=== PATIENT | male | born 1970 | race Caucasian/White ===

== ENCOUNTER 2016-07-19 15:43 | Emergency (ER) | payer OTHER ==
[~2016-07-19] VITALS: Ht 182.9 cm; Wt 101.6 kg
[2016-07-19 15:43] VITALS: BP_SYST 207
--- NOTE | 2016-07-19 15:43 | NUR ---
BROUGHT IN BY [employer] AND [facility]ACED IN [facility], REPORT GIVEN TO JOHNNIE
[2016-07-19] MEDS ORDERED: cloNIDine HCL 0.1 MG TABLET PO ONE (16:15)
--- NOTE | 2016-07-19 16:35 | NUR ---
PT TO ER AAOx4 BROUGHT IN BY [employer] FOR HYPERTENSION OKAY TO BOOK, BP 210/91 at this time MD Notified Orders received, denies pain, denies CP, denies SOB Law enforcement at bedside
[2016-07-19 17:30] VITALS: BP_SYST 121
--- NOTE | 2016-07-19 17:30 | NUR ---
Patient given written and verbal discharge instructions and verbalizes understanding. ER MD DR. VASQUEZ discussed with patient AND [employer] the results and treatment provided. Patient in stable condition. ID arm band removed. NO Rx given. Patient educated on pain management and to follow up with PMD. Pain Scale 0/10 Opportunity for questions provided and answered.
== END 2016-07-19 17:30 ==
LOC: SED 15:43
DX: Z02.89 Encounter for other administrative examinations (principal); I10 Essential (primary) hypertension
CPT/HCPCS: 99283

== ENCOUNTER 2017-02-17 23:51 | Emergency (ER) | payer OTHER ==
[~2017-02-17] VITALS: Ht 180.3 cm; Wt 102.1 kg
[2017-02-17 23:51] VITALS: BP_SYST 152
[2017-02-18] MEDS ORDERED: LORazepam 2 MG/ML VIAL (FOR ER USE) IM ONE (00:15)
[2017-02-18 00:55] VITALS: BP_SYST 152
== END 2017-02-18 00:55 | disposition home or self-care (01) ==
LOC: SED 23:51
DX: F41.9 Anxiety disorder, unspecified (principal); I10 Essential (primary) hypertension
CPT/HCPCS: 96372; 99284; J2060

== ENCOUNTER 2017-04-06 14:39 | Emergency (ER) | payer OTHER ==
[~2017-04-06] VITALS: Ht 180.3 cm; Wt 102.1 kg
[2017-04-06 14:39] VITALS: BP_SYST 156
--- NOTE | 2017-04-06 14:39 | NUR ---
Patient triaged and placed in waiting room. VSS and patient appears in no acute distress at this time. Accompanied by , awaiting available bed, and MD notified of need for MSE.
--- NOTE | 2017-04-06 15:29 | NUR ---
Patient to ER bed 08 to gown for evaluation. Side rails up. Will assume care of patiet.
--- NOTE | 2017-04-06 15:30 | NUR ---
Patient brought in with . Complaining of "feeling foggy" today with worsening nasal congestion and productive cough with clear and green phlegm for 4 days. Denies any fever or Shortness of breath. Pain of 7/10. no other complaints/injuries per patient or as noted. Will continue to monitor.
--- NOTE | 2017-04-06 15:37 | NUR ---
MARC Dias at bedside examining patient.
[2017-04-06] MEDS ORDERED: DEXAMETHASONE SOD PHOSPHATE 10 MG/ML VIAL IM ONE (15:45)
[2017-04-06] MEDS ORDERED: IPRATROPIUM/ALBUTEROL SULFATE 3 ML AMPUL.NEB INH ONE (15:45)
[2017-04-06] MEDS ORDERED: KETOROLAC TROMETHAMINE 60 MG/2 ML VIAL IM ONE (15:45)
[2017-04-06 16:17] VITALS: BP_SYST 148
--- NOTE | 2017-04-06 16:20 | NUR ---
Patient given written and verbal discharge instructions and verbalizes understanding. ER MD discussed with patient the results and treatment provided. Patient in stable condition. ID arm band removed. Rx of Motrin,Medrol given. Patient educated on pain management and to follow up with PMD. Pain Scale 2/10 tolerable for pt Opportunity for questions provided and answered.
== END 2017-04-06 16:18 | disposition home or self-care (01) ==
LOC: SED 14:39
DX: J01.90 Acute sinusitis, unspecified (principal); I10 Essential (primary) hypertension
CPT/HCPCS: 96372; 99284; J1100; J1885

== ENCOUNTER 2017-08-16 05:40 | Emergency (ER) | payer OTHER ==
[~2017-08-16] VITALS: Ht 180.3 cm; Wt 102.1 kg
[2017-08-16 05:40] VITALS: BP_SYST 138
[2017-08-16 06:06] VITALS: BP_SYST 136
== END 2017-08-16 06:06 | disposition home or self-care (01) ==
LOC: SED 05:40
DX: G89.29 Other chronic pain (principal); M54.5 Low back pain; I10 Essential (primary) hypertension; F41.9 Anxiety disorder, unspecified
CPT/HCPCS: 99283

== ENCOUNTER 2023-07-10 06:33 | Day surgery (SDC) | payer MEDICAID ==
[~2023-07-10] VITALS: Ht 180.3 cm; Wt 113.9 kg
[2023-07-10 07:25] VITALS: O2SAT 100
[2023-07-10] MEDS ORDERED: hydrALAZINE HCL 20 MG/ML VIAL IVP PRN (10:00)
[2023-07-10] MEDS ORDERED: LR 1,000 ML IV SCH (10:00)
[2023-07-10] MEDS ORDERED: LABETALOL 100 MG/ 20ML VIAL IVP PRN (10:00)
[2023-07-10] MEDS ORDERED: HYDROmorphone 1 MG/ML INJ. CARTRIDGE IVP PRN ×2 (10:00)
[2023-07-10] MEDS ORDERED: MEPERIDINE HCL/PF 25 MG/ML DISP.SYRIN IVP PRN (10:00)
[2023-07-10] MEDS ORDERED: METOCLOPRAMIDE HCL 10 MG/2 ML VIAL IVP PRN (10:00)
[2023-07-10] MEDS ORDERED: ACETAMINOPHEN I.V. 1000 MG 100 ML IV ONE (10:05)
[2023-07-10] MEDS ORDERED: LR 1,000 ML IV.SOLN IV ONE (11:00)
[2023-07-10] MEDS ORDERED: CEFAZOLIN 2 GM IVPB PREMIX 50 ML IV ONE (11:00)
[2023-07-10] MEDS ORDERED: SUGAMMADEX SODIUM 200 MG/2 ML VIAL IV ONE (11:00)
[2023-07-10] MEDS ORDERED: PROPOFOL 200MG/ 20ML VIAL (DIPRIVAN) IV ONE (11:00)
[2023-07-10] MEDS ORDERED: DESFLURANE 15 MIN GAS INH ONE (11:00)
[2023-07-10] MEDS ORDERED: NS IRRIG SOLN 1000 ML IR ONE (11:00)
[2023-07-10] MEDS ORDERED: fentaNYL CITRATE/PF 100 MCG/2 ML AMP ONE (11:00)
[2023-07-10] MEDS ORDERED: DEXAMETHASONE SOD PHOSPHATE 4 MG/ML VIAL ONE (11:00)
[2023-07-10] MEDS ORDERED: ONDANSETRON HCL 4 MG/2 ML VIAL ONE (11:00)
[2023-07-10] MEDS ORDERED: KETOROLAC TROMETHAMINE 30 MG VIAL ONE (11:00)
[2023-07-10] MEDS ORDERED: ROCURONIUM BROMIDE 10 MG/ML (ZEMURON) ONE (11:00)
[2023-07-10] MEDS ORDERED: MIDAZOLAM HCL 5 MG/ML VIAL (VERSED) IV ONE (11:00)
[2023-07-10] MEDS ORDERED: BACITRACIN 1 GM OINT TP ONE (11:00)
[2023-07-10] MEDS ORDERED: LIDOCAINE/EPI 1% 1:100000 20 ML VIAL ONE (11:00)
[2023-07-10 13:51] VITALS: BP_SYST 133; PULSE 74; RESP 20
== END 2023-07-10 12:50 | disposition home or self-care (01) ==
LOC: SMU 06:33 → SDS 06:33
PROVIDERS: ATTEND Otolaryngology
DX: J35.01 Chronic tonsillitis (principal); E66.3 Overweight; Z87.891 Personal history of nicotine dependence; Z79.899 Other long term (current) drug therapy; Z96.643 Presence of artificial hip joint, bilateral; Z98.890 Other specified postprocedural states; Z68.35 Body mass index [BMI] 35.0-35.9, adult; Z83.3 Family history of diabetes mellitus
CPT/HCPCS: 42826; 88304; J3490; J0690; J1100; J1885; J2250; J2405; J2704; J3010; J7120; J0131